=== PATIENT | male | born 1970 | race African-American/Black ===

== ENCOUNTER 2024-10-23 13:22 | Outpatient (CLI) | payer OTHER, SELFPAY ==
--- NOTE | ~2024-10-23 | MR_ITS ---
MRI of the lumbar spine Clinical History: Radiculopathy Technique: Axial T2-weighted images, and sagittal T1-weighted, T2-weighted, and T2 fat-sat images wer e acquired. Findings: There is no fracture or subluxation of lumbar spine. Vertebral bodies maintain normal heigh t and alignment. No bone marrow signal abnormality seen. At L1-L2, there is no significant disc bulge or herniation. No spinal canal stenosis or neural forami nal narrowing. At L2-L3, there is minimal disc bulge with mild facet arthropathy. No central canal stenosis or neura l foraminal narrowing. At L3-L4, there is mild diffuse disc bulge and mild facet arthropathy. No central canal stenosis. The re is mild to moderate left neural foraminal narrowing, and mild right neural foraminal narrowing. At L4-L5, there is diffuse disc bulge with moderate facet arthropathy. No central canal stenosis. The re is moderate bilateral neural foraminal narrowing. At L5-S1, there is disc bulge with mild to moderate facet arthropathy. No central canal stenosis. The re is moderate to severe left neural foraminal narrowing, and mild to moderate right neural foraminal narrowing. Paravertebral soft tissues are unremarkable. Impression: Mild degenerative spondylosis overall, as above. Reviewed, dictated and finalized at location . Impression: Mild degenerative spondylosis overall, as above.
--- NOTE | ~2024-10-23 | XR_ITS ---
XR sacroiliac joints min 3V Ordering provider: Umu Frederick, LISA History: . Sacroiliac dysfunction . Comparison: None. FINDINGS: BONES: No acute fracture or dislocation. JOINTS: The bilateral sacroiliac joint spaces appear well maintained. No bony fusion of the sacroilia c joints or bony erosions. SOFT TISSUES: Unremarkable. IMPRESSION: NO ACUTE OSSEOUS ABNORMALITY. NORMAL SACROILIAC JOINTS. Reviewed, dictated and finalized at location A.
== END 2024-10-23 13:23 | disposition home or self-care (01) ==
LOC: MICIMG 13:24
PROVIDERS: PCP Physician Assistant; Visit Provider Physician Assistant
DX: M47.816 Spondylosis without myelopathy or radiculopathy, lumbar region (principal); M53.3 Sacrococcygeal disorders, not elsewhere classified
CPT/HCPCS: 72148; 72202